=== PATIENT | female | born 1955 | race Caucasian/White ===

== ENCOUNTER 2018-05-24 14:30 | Emergency (ER) | payer OTHER ==
[2018-05-24] MEDS: DIPHENHYDRAMINE 2.5 MG/ML 5ML CUP PO (16:43)
[2018-05-24] MEDS: KETOROLAC 30 MG INJ IM (16:43)
[2018-05-24] MEDS: ACETAMINOPHEN 500 MG TAB PO (16:43)
== END 2018-05-24 18:43 | disposition home or self-care (01) ==
LOC: FTE 18:43
DX: J01.10 Acute frontal sinusitis, unspecified (principal); M79.642 Pain in left hand; I10 Essential (primary) hypertension; Z79.82 Long term (current) use of aspirin
CPT/HCPCS: 99283; Z7502